=== PATIENT | male | born 1960 ===

== ENCOUNTER 2017-12-08 11:59 | Emergency (ER) | payer OTHER ==
[2017-12-08 12:07] VITALS: BMI 30.7
[2017-12-08 12:11] VITALS: RESP 18; TEMP 99.3
[2017-12-08] MEDS ORDERED: Promethazine/Cod 6.25mg-10mg/5ml Syr UD PO STA (12:41)
--- NOTE | 2017-12-08 12:47 | ED PDOC ---
Arrival/HPI - General Chief Complaint: Back Pain Time Seen by Provider: 12/08/17 12:41 Historian: Patient - History of Present Illness Narrative History of Present Illness (Text): 12/08/17 12:43 This 57 yo male who denies pmh presents to this Emergency department complaining of cough x 4 weeks, and mid back pain x 2 days. Patient denies hemoptysis, sob, cp, abdominal pain, urinary symptoms. On the contrary with triage statement, patient denies lower back pain. Time/Duration: Other (see hpi) Context: Home Past Medical History - Provider Review Nursing Documentation Reviewed: Yes - Infectious Disease Hx of Infectious Diseases: None - Psychiatric Hx Substance Use: No Family/Social History - Physician Review Nursing Documentation Reviewed: Yes Family/Social History: Other (noncontributory) Smoking Status: Never Smoked Hx Alcohol Use: No Hx Substance Use: No Allergies/Home Meds Allergies/Adverse Reactions: Allergies No Known Allergies Allergy (Verified 12/08/17 12:17) Review of Systems - Review of Systems Constitutional: Normal. absent: Fatigue, Weight Change, Fevers, Night Sweats Eyes: Normal ENT: Normal Respiratory: Cough. absent: SOB, Sputum, Wheezing Cardiovascular: Normal. absent: Chest Pain, Palpitations, Orthopnea, Syncope Gastrointestinal: Normal. absent: Abdominal Pain, Nausea, Vomiting Genitourinary Male: Normal Musculoskeletal: Back Pain (mid/upper back pain). absent: Neck Pain Skin: Normal Neurological: Normal Endocrine: Normal Hemo/Lymphatic: Normal Psychiatric: Normal Physical Exam Vital Signs Temp Pulse Resp BP Pulse Ox 12/08/17 12:00 99.3 F 100 H 18 132/86 96 Temperature: Afebrile Blood Pressure: Normal Pulse: Regular Respiratory Rate: Normal Appearance: Positive for: Well-Appearing, Non-Toxic, Comfortable Pain Distress: None Mental Status: Positive for: Alert and Oriented X 3 - Systems Exam Head: Present: Atraumatic, Normocephalic Pupils: Present: PERRL Extroacular Muscles: Present: EOMI Conjunctiva: Present: Normal Mouth: Present: Moist Mucous Membranes Neck: Present: Normal Range of Motion Respiratory/Chest: Present: Clear to Auscultation, Good Air Exchange. No: Respiratory Distress, Accessory Muscle Use Cardiovascular: Present: Regular Rate and Rhythm, Normal S1, S2. No: Murmurs Abdomen: Present: Normal Bowel Sounds. No: Tenderness, Distention, Peritoneal Signs Back: Present: Normal Inspection Upper Extremity: Present: Normal Inspection. No: Cyanosis, Edema Lower Extremity: Present: Normal Inspection. No: Edema Neurological: Present: GCS=15, CN II-XII Intact, Speech Normal Skin: Present: Warm, Dry, Normal Color. No: Rashes Psychiatric: Present: Alert, Oriented x 3, Normal Insight, Normal Concentration Medical Decision Making ED Course and Treatment: 12/08/17 14:21 Re-evaluation. Patient feels better. Discussed results and plan with patient who expresses understanding. All questions answered and there is agreement with the plan to discharge home with instructions. Patient stable for discharge. Return if symptoms persist or worsen. Influenza test was negative. Patient feels better and he wishes to be d/c home soon. Re-evaluation Time: 14:21 Reassessment Condition: Re-examined, Improved - Lab Interpretations Lab Results: Lab Results 12/08/17 12:50: Influenza Typ A,B (EIA) Negative for flu a/b I have reviewed the lab results: Yes Interpretation: No clinic. lab abnormalty - RAD Interpretation Narrative RAD Interpretations (Text): 12/08/17 14:22 Chest X-rays: NAD Radiology Orders: 12/08/17 12:41 CHEST TWO VIEWS (PA/LAT) [RAD] Stat - Medication Orders Current Medication Orders: Discontinued Medications Acetaminophen (Tylenol 325mg Tab) 975 mg PO STAT STA Stop: 12/08/17 12:44 Last Admin: 12/08/17 12:58 Dose: 975 mg MAR Pain/Vitals Document 12/08/17 12:58 GMD (Rec: 12/08/17 12:58 GMD [facility] [id number] Pain Reassessment Is This A Pain ReAssessment? No Sleep Is patient sleeping during reassessment? No Presence of Pain Presence of Pain Yes Promethazine HCl/Codeine (Phenergan/Codeine Oral Syrup) 5 ml PO STAT STA Stop: 12/08/17 12:42 Last Admin: 12/08/17 12:58 Dose: 5 ml Disposition/Present on Arrival - Present on Arrival Any Indicators Present on Arrival: No History of DVT/PE: No History of Uncontrolled Diabetes: No Urinary Catheter: No History of Decub. Ulcer: No History Surgical Site Infection Following: None - Disposition Have Diagnosis and Disposition been Completed?: Yes Diagnosis: Bronchitis Disposition: HOME/ ROUTINE Disposition Time: 14:26 Patient Plan: Discharge Patient Problems: Current Active Problems Problem Status Onset Bronchitis Acute Condition: GOOD Discharge Instructions (ExitCare): Acute Bronchitis (ED) Additional Instructions: Llame a ortiz doctor deep Charis para seguimiento medico. [place] medicina pj romero side ordenado. regrese a la emergencia si simptomas empeora. Prescriptions: Azithromycin [Z-Ludin] 250 mg PO DAILY #6 tab Fluticasone Propionate [Flonase] 1 actuation NS DAILY #1 bottle Promethazine/Codeine [Phenergan/Codeine Oral Syrup] 5 ml PO Q4H PRN #120 ml PRN Reason: Cough And Congestion Referrals: PCP,NO [Primary Care Provider] - Follow up with primary [facility] [Outside] - Follow up with primary [facility] [Outside] - Follow up with primary Forms: [employer] (Maltese)
--- NOTE | 2017-12-08 13:31 | RAD ---
HISTORY: COMPARISON: No prior. TECHNIQUE: Chest PA and lateral FINDINGS: LINES AND TUBES: None. LUNG AND PLEURA: The lungs are well inflated and clear. There are small calcified granulomas in the right lower lobe. HEART AND MEDIASTINUM: The heart is not enlarged. The hilar and mediastinal contours are within normal limits. SKELETAL STRUCTURES: The bony structures are within normal limits for the patient's age. VISUALIZED UPPER ABDOMEN: Normal. OTHER FINDINGS: None. IMPRESSION: No active pulmonary disease.
[2017-12-08 14:43] VITALS: BP 122/78; PULSE 89; O2SAT 99
== END 2017-12-08 14:45 | disposition home or self-care (01) ==
LOC: ED 11:59
DX: J20.9 Acute bronchitis, unspecified (principal)